=== PATIENT | female | born 1945 | race Caucasian/White ===

== ENCOUNTER → 2016-11-07 | Outpatient (REF) | payer MEDICARE, OTHER ==
[~2016-11-07] MED LIST: /ESOM40CA PO; /PRAV20TA PO; AMLO5TAB2 PO; ASPI325T PO; ASPI81TA85 PO; ATEN50TA2 PO; BUPR150T PO; BUPR1TAB17 PO; CLOP75TA2 PO; COUM2.5T11 PO; FLUO20CA9 PO; GABA300C2 PO; GABA300C3 PO; HUMA100I SC; HUMA100I3 SC; LEVE1INJ5 SC; LEVEINJ SC; LIPI80TA PO; LISI5TAB PO; METF1000 PO; NEXI40CA PO; PARO10TA10 PO; PERC5TAB6 PO; TYLE325T5 PO; VITA-122 PO
[2016-11-07 13:41] LABS: PERCENT SATURATION 29.9 % (13.2-37.4)
== END ==
LOC: M LAB REF 13:06
DX: E83.119 Hemochromatosis, unspecified (principal)

== ENCOUNTER → 2017-02-26 | Outpatient (REF) | payer MEDICARE, OTHER ==
[~2017-02-26] MED LIST changes: +GABA-282 PO; -GABA300C3 PO
== END ==
LOC: M LAB REF 09:38
PROVIDERS: ATTEND Physician Assistant Medical
DX: N30.01 Acute cystitis with hematuria (principal)

== ENCOUNTER → 2017-03-11 | Outpatient (REF) | payer MEDICARE, OTHER ==
[~2017-03-11] MED LIST changes: -BUPR1TAB17 PO; +BUPR1TAB53 PO; -COUM2.5T11 PO; +COUM2.5T17 PO; +FLUO20CA19 PO; -FLUO20CA9 PO; +METF10004 PO; +PERC5TAB12 PO; -PERC5TAB6 PO
== END ==
LOC: M LAB REF 18:14
PROVIDERS: ATTEND Physician Assistant Medical
DX: N30.01 Acute cystitis with hematuria (principal)

== ENCOUNTER → 2017-03-21 | Outpatient (REF) | payer MEDICARE, OTHER | LOC: M LAB REF 17:01 | PROVIDERS: ATTEND Internal Medicine | DX: E83.119 Hemochromatosis, unspecified (principal) ==

== ENCOUNTER → 2017-07-28 | Outpatient (CLI) | payer MEDICARE, OTHER ==
--- NOTE | 2017-07-28 11:57 | REPMRS ---
Patient History The patient states she has not had a clinical breast exam in over a year. Patient is postmenopausal. No known family history of cancer. Took hormonal contraceptives for 3 years. Digital Mammo Screening Bilat: July 28, 2017 - Exam #: [id number] Bilateral CC and MLO view(s) were taken. Technologist: Malissa Interiano, Technologist Prior study comparison: July 12, 2016, bilateral digital mammo screening bilat performed at [facility]. December 24, 2014, bilateral digital mammo screening bilat performed at [facility]. FINDINGS: There are scattered fibroglandular densities. There has been no change in the appearance of the mammogram from the prior studies. There is a mild amount of residual fibroglandular tissue which is fairly symmetric. There is no interval development of dominant mass, architectural distortion, or clustered microcalcification suggestive of malignancy. ASSESSMENT: BI-RADS/ACR category 1 mammogram. Negative. Recommendation Routine screening mammogram in 1 year (for women over age 40). This mammogram was interpreted with the aid of an FDA-approved computer-aided dectection system. Electronically Signed By: Xander Zuniga MD 07/28/17 [id number]
== END ==
LOC: M RAD 11:00
PROVIDERS: ATTEND Nurse Practitioner Adult Health
DX: Z12.31 Encounter for screening mammogram for malignant neoplasm of breast (principal); Z78.0 Asymptomatic menopausal state; Z92.0 Personal history of contraception

== ENCOUNTER → 2017-07-30 | Outpatient (REF) | payer MEDICARE, OTHER | LOC: M LAB REF 19:17 | PROVIDERS: ATTEND Physician Assistant Medical | DX: N30.01 Acute cystitis with hematuria (principal) ==

== ENCOUNTER → 2017-11-27 | Outpatient (REF) | payer MEDICARE, OTHER | LOC: M LAB REF 12:36 | DX: N39.0 Urinary tract infection, site not specified (principal) | CPT/HCPCS: 87088; 87186 ==

== ENCOUNTER → 2017-12-14 | Outpatient (REF) | payer MEDICARE, OTHER | LOC: M LAB REF 12:39 | DX: N39.0 Urinary tract infection, site not specified (principal) | CPT/HCPCS: 87186 ==

== ENCOUNTER → 2018-03-28 | Outpatient (REF) | payer MEDICARE, OTHER ==
[2018-03-29 14:33] LABS: FERRITIN 23 NG/ML (8-252); IRON (FE) 66 UG/DL (50-170); PERCENT SATURATION 21.2 % (13.2-45.0); TOTAL IRON BINDING CAPACITY 311 UG/DL (250-450)
== END ==
LOC: M LAB REF 13:37
DX: E83.119 Hemochromatosis, unspecified (principal); N18.3 Chronic kidney disease, stage 3 (moderate)
CPT/HCPCS: 83550

== ENCOUNTER → 2018-05-08 | Outpatient (REF) | payer MEDICARE, OTHER | LOC: M LAB REF 12:18 | DX: N39.0 Urinary tract infection, site not specified (principal) | CPT/HCPCS: 87186 ==

== ENCOUNTER → 2018-12-25 | Outpatient (CLI) | payer MEDICARE, OTHER ==
[~2018-12-25] MED LIST changes: -/ESOM40CA PO; -/PRAV20TA PO; +AMLO5TAB6 PO; -GABA-282 PO; +GABA-843 PO; +NEXI1CAP3 PO; +PRAV1TAB39 PO
--- NOTE | 2018-12-25 12:59 | REPMRS ---
Patient History The patient states she has not had a clinical breast exam in over a year. No known family history of cancer. Took hormonal contraceptives for 3 years. Digital Mammo Screening Bilat: December 25, 2018 - Exam #: [id number] Bilateral CC and MLO view(s) were taken. Technologist: Lisa Bucio, Technologist Prior study comparison: July 28, 2017, bilateral digital mammo screening bilat performed at [facility]. July 12, 2016, bilateral digital mammo screening bilat performed at [facility]. December 24, 2014, bilateral digital mammo screening bilat performed at [facility]. FINDINGS: There are scattered fibroglandular densities. There has been no change in the appearance of the mammogram from the prior studies. There is a mild amount of scattered fibroglandular density which is fairly symmetric. There is no interval development of dominant mass, architectural distortion, or clustered microcalcification suggestive of malignancy. 3-D tomosynthesis shows no additional findings. Assessment: BI-RADS/ACR category 1 mammogram. Negative Mammogram. Recommendation Routine screening mammogram of both breasts in 1 year (for women over age 40). This patient's Lifetime Breast Cancer RIsk is estimated at 4.2 %. This mammogram was interpreted with the aid of an FDA-approved computer-aided dectection system. Electronically Signed By: Presley Brito MD 12/25/18 [id number]
== END ==
LOC: M RAD 10:51
PROVIDERS: ATTEND Nurse Practitioner Adult Health
DX: Z12.31 Encounter for screening mammogram for malignant neoplasm of breast (principal)

== ENCOUNTER → 2019-09-21 | Outpatient (CLI) | payer MEDICARE, OTHER ==
--- NOTE | 2019-09-22 09:04 | REP ---
MRI RIGHT SHOULDER: TECHNIQUE: Axial T2 fat sat, gradient echo, sagittal oblique T2 fat sat, coronal oblique T1, T2 fat sat. There is a full thickness partial tear of the anterior aspect of the supraspinatus tendon, peripherally. The gap in the tendon measures approximately 9 mm in length. There is diffuse increased signal on T2-weighted images involving the subscapularis tendon likely representing a partial tear. There is also some degree of mild increased signal on T2-weighted images involving the infraspinatus tendon in the region of the musculotendinous junction compatible with tendinopathy/tendinitis. There are moderate hypertrophic degenerative changes of the acromioclavicular joint with a tiny amount of fluid in the joint. The acromion is type II. The biceps tendon is within the bicipital groove with mild diffuse increased signal and surrounding fluid suggesting tenosynovitis. There is no Hill-Sachs deformity. The deltoid muscle demonstrates no abnormal signal. There is fraying of the biceps labral complex. No definite labral tear is seen. There is mild chondromalacia at the glenohumeral joint. Tiny subcortical cystic changes are seen in the superolateral humeral head. There is a small joint effusion with a tiny amount of fluid in the subacromial subdeltoid bursae. IMPRESSION: Full thickness partial tear anterior peripheral supraspinatus tendon with a gap in the tendon 9 mm in length. Partial tear subscapularis tendon. Mild tendinopathy/tendinitis infraspinatus tendon. Moderate hypertrophic degenerative changes acromioclavicular joint with type II acromion. Biceps tenosynovitis. Fraying of the biceps labral complex without a definite labral tear. Tiny subcortical cystic changes superolateral humeral head. Very small amount of fluid in the subacromial subdeltoid bursae. Electronically Signed by Xander Zuniga MD 09/22/2019 09:41 A
== END ==
LOC: M RAD 12:51
PROVIDERS: ATTEND Orthopaedic Surgery Hand Surgery
DX: S46.091A Other injury of muscle(s) and tendon(s) of the rotator cuff of right shoulder, initial encounter (principal); Y92.9 Unspecified place or not applicable; Y93.9 Activity, unspecified; Y99.9 Unspecified external cause status

== ENCOUNTER → 2019-10-25 | Outpatient (REF) | payer MEDICARE, OTHER ==
[~2019-10-25] MED LIST changes: -FLUO20CA19 PO; +FLUO20CA22 PO; +JARD1TAB PO; +LISI10TA4 PO; +MAPA500T2 PO; +TOUJ1.2I SC; +VITA100054 PO
[2019-10-25 18:13] LABS: PERCENT SATURATION 23.9 % (13.2-45.0)
== END ==
LOC: M LAB REF 16:35
PROVIDERS: ATTEND Nurse Practitioner Adult Health
DX: N18.3 Chronic kidney disease, stage 3 (moderate) (principal); Z79.4 Long term (current) use of insulin; Z79.82 Long term (current) use of aspirin; Z79.899 Other long term (current) drug therapy

== ENCOUNTER 2019-10-29 09:47 | Day surgery (SDC) | payer MEDICARE, OTHER ==
[~2019-10-29] VITALS: Ht 172.7 cm; Wt 81.6 kg
[2019-10-29] MEDS ORDERED: ROPIvacaine 0.5% 30 ML INJECTION (J2795 PER 1MG) ONE (09:48)
[2019-10-29] MEDS ORDERED: dexameTHASONE 10 MG/1 ML VIAL PRES.FREE (J1100) ONE (09:48)
[2019-10-29] MEDS ORDERED: LIDOCAINE 1% MDV 20ML VIAL ONE (09:48)
[2019-10-29] MEDS ORDERED: propofoL 200 MG/20 ML VIAL As Ordered ONE (10:49)
[2019-10-29] MEDS ORDERED: LIDOCAINE 2% INJ 100 MG/5 ML SDV (FOR ANES.) As Ordered ONE (10:49)
[2019-10-29] MEDS ORDERED: ROCURONIUM BROMIDE 50 MG/5 ML VIAL As Ordered ONE (10:49)
[2019-10-29] MEDS ORDERED: fentaNYL 100 MCG/2 ML INJECTION (J3010) As Ordered ONE ×2 (10:50→12:12)
[2019-10-29] MEDS ORDERED: dexameTHASONE 4 MG/ML 1ML VIAL (J1100) As Ordered ONE (10:50)
[2019-10-29] MEDS ORDERED: MIDAZOLAM INJ 2 MG/2 ML VIAL (J2250) As Ordered ONE ×2 (10:50→12:12)
[2019-10-29] MEDS ORDERED: ONDANSETRON 4MG/2ML VIAL (J2405) As Ordered ONE (10:50)
[2019-10-29] MEDS ORDERED: ceFAZolin SOD 2 GM in IV 1 EA IV ONE (11:00)
[2019-10-29] MEDS ORDERED: atenoloL 25 MG TAB PO ONE (11:00)
[2019-10-29] MEDS ORDERED: LR 1,000 ML IV ONE (11:00)
[2019-10-29 11:22] VITALS: BP 148/74
[2019-10-29] MEDS ORDERED: MIDAZOLAM INJ 2 MG/2 ML VIAL (J2250) IV ONE (12:45)
[2019-10-29] MEDS ORDERED: fentaNYL 100 MCG/2 ML INJECTION (J3010) IV ONE (12:45)
[2019-10-29] MEDS ORDERED: PHENYLEPHRINE INJ 10MG/ML VIAL (J2370) As Ordered ONE (13:02)
[2019-10-29] MEDS ORDERED: EPINEPHrine 1MG/ML INJ 30ML MD-VIAL As Ordered ONE (13:05)
[2019-10-29] MEDS ORDERED: ACETAMINOPHEN 1000MG 100ML IV BTL (OFIRMEV) (J0131 PER 10MG) As Ordered ONE (13:53)
[2019-10-29] MEDS ORDERED: SUGAMMADEX SODIUM 500 MG/5 ML VIAL (BRIDION) As Ordered ONE (13:53)
[2019-10-29] MEDS ORDERED: oxyCODONE 5MG TAB PO PRN ×3 (16:00)
[2019-10-29] MEDS ORDERED: LR 1,000 ML IV SCH (16:00)
[2019-10-29] MEDS ORDERED: fentaNYL 100 MCG/2 ML INJECTION (J3010) IV PRN (16:00)
[2019-10-29] MEDS ORDERED: ONDANSETRON 4MG/2ML VIAL (J2405) IV PRN (16:00)
[2019-10-29] MEDS ORDERED: HYDROMORPHONE HCL 0.5 MG/ 0.5 ML SYRINGE (J1170 PER 1) IV PRN (16:00)
[2019-10-29] MEDS ORDERED: METOCLOPRAMIDE INJ 10MG/2ML VIAL (J2765) As Ordered ONE (16:26)
[2019-10-29] MEDS ORDERED: METOCLOPRAMIDE INJ 10MG/2ML VIAL (J2765) IV SCH (16:45)
[2019-10-29 18:00] VITALS: BP 142/77
--- NOTE | 2019-10-30 14:57 | RO ---
DATE OF PROCEDURE: 10/29/2019 PREOPERATIVE DIAGNOSES: Right rotator cuff tear, biceps tendinitis with impingement. POSTOPERATIVE DIAGNOSES: Right rotator cuff tear, biceps tendinitis with impingement. PROCEDURE: Right rotator cuff repair, biceps tenodesis, distal clavicle excision, subacromial decompression and acromioplasty. SURGEON: Gaston Olsen MD FRENCH COMBER: Edward Foster PA-C who was essential for suture management. ANESTHESIA: General. INDICATION: 74-year-old female that failed nonoperative treatment. We discussed the risks and benefits of surgical repair including, but not limited to. Infection, damage to surrounding structures, incomplete relief and the patient wished to proceed. ESTIMATED BLOOD LOSS: Minimal. COMPLICATIONS: None. PREOPERATIVE ANTIBIOTICS: 2 grams of Ancef. OPERATIVE DESCRIPTION: Patient was brought back to the OR in the supine position, underwent general anesthesia and placed into the beach chair, at which point the right arm was prepped and draped in the usual fashion. We then had a time out confirming site, side and surgery. Once all in agreement, we made a stab incision for our posterior portal. Once we entered the glenohumeral joint, we identified the rotator interval and established a right anterior portal and inserted the cannula. At this time, we evaluated the articular joint. There was stage 3/4 changes in the humeral head and glenoid with focal defects in the center position with some significant biceps tendonitis and a lipstick sign and also a type 2 superior labral anterior posterior (SLAP) tear. We then tagged the bicep with FiberLink and detached it from its labral attachment and at top of the groove with a 4-5 SwiveLock. We then debrided the labrum at which point we identified the rotator cuff tear and debrided the cuff insertion position using a burner shaver and curettes. We then went into the subacromial space. I did a subacromial decompression and acromioplasty utilizing a shaver, bur and coagulation along with a distal clavicle excision from the anterior portal removing approximately 1.1 cm of bone to actively decompress the rotator cuff at which point we created enough room to debride the footprints of the rotator cuff from its subacromial space along with the lateral cortex. We used SpeedBridge and placed two medial row anchors with FiberTape passing both anterior and posteriorly to pull the cuff forward. At this point, as the bone quality was quite poor, we were able to insert the punch by hand. We then snipped the two limbs of the FiberTape and crossed them over as per usual and placed our two lateral anchors. We were able to compress the cuff nicely to bone, however the suture itself was actually crushing portions of the bone from our lateral anchor suggesting how poor that bone was, but the anchors were tested and appeared to be well fixed. At this point we irrigated the wound thoroughly, closed the incisions with #3-0 nylon and placed a dressing. The patient was awakened, placed into a sling and went to the postanesthesia care unit (PACU) in stable condition. POSTOP PLAN: Patient will work on pain control. We will see her in the office in 2 weeks for her incision check and likely we will progress her extremely slowly, waiting for any true active range of motion for approximately 6 weeks due to poor bone quality along with the large cuff tear. ANURAG
== END 2019-10-29 18:01 | disposition home or self-care (01) ==
LOC: M SDC 09:47
PROVIDERS: ATTEND Orthopaedic Surgery Hand Surgery
DX: M75.41 Impingement syndrome of right shoulder (principal); M75.21 Bicipital tendinitis, right shoulder; E11.9 Type 2 diabetes mellitus without complications; I10 Essential (primary) hypertension; E78.5 Hyperlipidemia, unspecified; G47.30 Sleep apnea, unspecified; Z79.84 Long term (current) use of oral hypoglycemic drugs; Z79.4 Long term (current) use of insulin; Z79.899 Other long term (current) drug therapy; Z79.82 Long term (current) use of aspirin; Z88.5 Allergy status to narcotic agent; F41.9 Anxiety disorder, unspecified; F32.9 Major depressive disorder, single episode, unspecified
CPT/HCPCS: 29824; 29826; 29827; 29828; C1713; J0131; J0690; J1100; J2250; J2370; J2405; J2765; J2795; J3010

== ENCOUNTER → 2020-10-25 | Outpatient (REF) | payer MEDICARE, OTHER ==
[~2020-10-25] MED LIST changes: +AMLO1TAB24 PO; -AMLO5TAB6 PO; -ASPI81TA85 PO; +ASPI81TA86 PO; +GABA-282 PO; -GABA-843 PO; +LISI10TA22 PO; -LISI10TA4 PO
[2020-10-25 15:19] LABS: APPEARANCE, URINE MANUAL HAZY (CLEAR); COLOR, URINE MANUAL LT YELLOW (YELLOW)
[2020-10-25 15:20] LABS: BILIRUBIN, URINE MANUAL NEGATIVE (NEGATIVE); BLOOD URINE MANUAL POSITIVE (NEGATIVE); GLUCOSE, URINE (UA) MANUAL 4+(1000 MG/DL) mg/dL (NEGATIVE); KETONE, URINE MANUAL NEGATIVE (NEGATIVE); LEUKOCYTE ESTERASE, URINE MAN POSITIVE (NEGATIVE); NITRITE, URINE MANUAL NEGATIVE (NEGATIVE); PROTEIN, URINE MANUAL 3+ mg/dL (NEGATIVE); UROBILINOGEN, URINE MANUAL NORMAL (NORMAL)
== END ==
LOC: M LAB REF 14:50
PROVIDERS: ATTEND Physician Assistant Medical
DX: M54.5 Low back pain (principal)

== ENCOUNTER → 2021-01-25 | Outpatient (REF) | payer MEDICARE, OTHER ==
[2021-01-25 12:36] LABS: APPEARANCE, URINE CLOUDY (CLEAR); BACTERIA, URINE AUTO 1+ (NEGATIVE); BILIRUBIN, URINE AUTO NEGATIVE (NEGATIVE); BLOOD, URINE BLOOD 3+ (NEGATIVE); COLOR, URINE YELLOW (YELLOW); GLUCOSE, URINE (UA) AUTO 3+ mg/dL (NEGATIVE); KETONE, URINE AUTO NEGATIVE (NEGATIVE); LEUKOCYTE ESTERASE, URINE AUTO 3+ (NEGATIVE); NITRITE, URINE AUTO NEGATIVE (NEGATIVE); PROTEIN, URINE AUTO 1+ mg/dL (NEGATIVE); RBC, URINE AUTO 6 /HPF (0-3); SPECIFIC GRAVITY URINE AUTO 1.027 (1.002-1.035); SQUAMOUS EPITHELIAL CELL UR AU 1 /HPF (0-6); UROBILINOGEN, URINE AUTO 0.2 mg/dL (0.0-2.0); WBC, URINE AUTO TNTC /HPF (0-3)
== END ==
LOC: M LAB REF 12:06
PROVIDERS: ATTEND Physician Assistant Medical
DX: N39.0 Urinary tract infection, site not specified (principal)

== ENCOUNTER → 2021-02-23 | Outpatient (REF) | payer MEDICARE, OTHER ==
[2021-02-23 17:33] LABS: APPEARANCE, URINE TURBID (CLEAR); BACTERIA, URINE AUTO 2+ (NEGATIVE); BILIRUBIN, URINE AUTO NEGATIVE (NEGATIVE); BLOOD, URINE BLOOD 2+ (NEGATIVE); COLOR, URINE YELLOW (YELLOW); GLUCOSE, URINE (UA) AUTO 3+ mg/dL (NEGATIVE); KETONE, URINE AUTO NEGATIVE (NEGATIVE); LEUKOCYTE ESTERASE, URINE AUTO 3+ (NEGATIVE); NITRITE, URINE AUTO POSITIVE (NEGATIVE); PROTEIN, URINE AUTO 2+ mg/dL (NEGATIVE); RBC, URINE AUTO 32 /HPF (0-3); SPECIFIC GRAVITY URINE AUTO 1.025 (1.002-1.035); SQUAMOUS EPITHELIAL CELL UR AU 0 /HPF (0-6); UROBILINOGEN, URINE AUTO 0.2 mg/dL (0.0-2.0); WBC, URINE AUTO TNTC /HPF (0-3)
== END ==
LOC: M LAB REF 17:00
PROVIDERS: ATTEND Physician Assistant Medical
DX: N39.0 Urinary tract infection, site not specified (principal)

== ENCOUNTER → 2021-03-04 | Outpatient (CLI) | payer MEDICARE, OTHER ==
--- NOTE | 2021-03-04 17:09 | REP ---
INDICATION: RECURRENT C-DIFF. COMPARISON: None. TECHNIQUE: Sagittal fat suppressed T2 and proton density. Coronal proton density, fat suppressed proton density and STIR. Axial fat suppressed proton density and T1. FINDINGS: The tendons of the tibialis anterior, extensor hallucis, and extensor digitorum muscles are intact and of normal appearing low signal throughout. The posterior tibial tendon is enlarged with T2 hyper signal within it. Flexor hallucis and flexor digitorum tendons are intact and of normal appearing low signal throughout. Increased fluid surrounds the flexor hallucis tendon. The Achilles tendon is intact and of normal appearing low signal throughout. The anterior and posteroinferior tibiofibular ligaments are intact. The anterior and posterior talofibular ligaments are intact the calcaneofibular ligament is intact. The ligaments within the sinus tarsi are intact and the sinus tarsi fat signal is preserved. Degenerative changes are seen throughout the ankle and imaged portion of the foot. There is no significant cystic degenerative change in the os calcis deep to the angle of Gissane. The lateral talar process is sharp and without cystic degeneration. There is a significant appearing heel valgus deformity with some degenerative changes seen involving the lateral ankle. There is irregularity of the chondral surface of the tibial plafond medially with thinning and irregularity of all articular cartilages. The subtalar joints are asymmetrically narrowed with marginal osteophyte formation. Plantar and retrocalcaneal heel spurs are present. IMPRESSION: 1. High-grade interstitial tear of the posterior tibial tendon. 2. Possible flexor hallucis tenosynovitis. 3. There is a heel valgus deformity with possible early lateral hindfoot impingement. 4. Chondromalacia throughout as described above. 5. Degenerative changes throughout as described above. 6. Heel spurs 7. Other findings as described above. <Electronically signed by Zackary Schmidt > 03/04/21 [id number]
== END ==
LOC: M RAD 16:00
PROVIDERS: ATTEND Podiatrist
DX: S96.012A Strain of muscle and tendon of long flexor muscle of toe at ankle and foot level, left foot, initial encounter (principal); M94.272 Chondromalacia, left ankle and joints of left foot; M77.32 Calcaneal spur, left foot; M19.072 Primary osteoarthritis, left ankle and foot; Q66.6 Other congenital valgus deformities of feet; X58.XXXA Exposure to other specified factors, initial encounter; Y92.9 Unspecified place or not applicable; Y99.9 Unspecified external cause status

== ENCOUNTER → 2021-04-06 | Outpatient (CLI) | payer MEDICARE, OTHER ==
[2021-04-06 09:32] LABS: BASO % 0.3 % (0.0-1.0); EOS # 0.2 10^3/uL (0.0-0.5); EOS % 3.8 % (0.0-3.0); HEMATOCRIT 49.9 % (36.0-47.0); HEMOGLOBIN 16.2 g/dl (12.0-15.5); LYMPH # 1.9 10^3/uL (1.5-5.0); MEAN CORPUSCULAR HEMOGLOBIN 28.4 pg (27.0-33.0); MEAN CORPUSCULAR HGB CONC 32.5 g/dl (32.0-36.5); MEAN CORPUSCULAR VOLUME 87.4 fl (80.0-96.0); MONO # 0.6 10^3/uL (0.0-0.8); MONO % 9.6 % (2.0-8.0); NEUTROPHILS # 3.4 10^3/uL (1.5-8.5); NEUTROPHILS % 54.8 % (36.0-66.0); PLATELET COUNT, AUTOMATED 202 10^3/uL (150-450); RED BLOOD COUNT 5.71 10^6/uL (4.00-5.40); WHITE BLOOD COUNT 6.1 10^3/uL (4.0-10.0)
[2021-04-06 09:53] LABS: ALBUMIN 4.2 GM/DL (3.2-5.2); BILIRUBIN,TOTAL 1.9 MG/DL (0.2-1.0); CALCIUM LEVEL 9.9 MG/DL (8.8-10.2); CREATININE FOR GFR 1.17 MG/DL (0.55-1.30); GLOMERULAR FILTRATION RATE 48.1 (>39); POTASSIUM SERUM 4.9 MEQ/L (3.5-5.1); TOTAL PROTEIN 7.7 GM/DL (6.4-8.2)
--- NOTE | 2021-04-06 10:53 | REP ---
INDICATION: PREOP- LABS AND EKG FIRST. COMPARISON: 09/01/2015 TECHNIQUE: PA and lateral FINDINGS: The cardiomediastinal silhouette is unchanged. There is cardiomegaly status quo. There is basilar fibrotic change status quo. No acute patchy parenchymal opacities or pleural effusions have developed. There is no change in the osseous structures. IMPRESSION: Cardiomegaly without evidence of acute cardiopulmonary disease. <Electronically signed by Zackary Schmidt > 04/06/21 [id number]
--- NOTE | 2021-04-06 22:04 | ECGEPIP ---
[facility] Test Date: 2021-04-06 Pat Name: NEO MONTERROSO Department: Room: - Gender: Female Water Treatment Specialist: JEOVANY : 1945 Requested By: Jose Luis Haines Order Number: [id number] Reading MD: Xavi Arroyo Measurements Intervals [place] Rate: 67 P: 41 UT: 186 QRS: -72 QRSD: 118 T: 74 QT: 410 QTc: 433 Interpretive Statements Normal sinus rhythm Left anterior fascicular block Left ventricular hypertrophy with QRS widening and repolarization abnormality ( R in aVL , Emigdio product , Romhilt-Nava ) Cannot rule out Septal infarct , age undetermined Last tracing on 09/01/15, 10:57 No remarkable changes Electronically Signed on 04-06-2021 22:04:26 EDT by Xavi Arroyo
== END ==
LOC: M LAB 08:54
PROVIDERS: ATTEND Podiatrist
DX: Z01.818 Encounter for other preprocedural examination (principal); M66.372 Spontaneous rupture of flexor tendons, left ankle and foot; M79.672 Pain in left foot; I51.7 Cardiomegaly

== ENCOUNTER → 2021-04-25 | Outpatient (REF) | payer MEDICARE, OTHER ==
[~2021-04-25] MED LIST changes: +ACET-683 PO; +ASPI81TA26 PO
[2021-04-25 18:03] LABS: APPEARANCE, URINE TURBID (CLEAR); BACTERIA, URINE AUTO 1+ (NEGATIVE); BILIRUBIN, URINE AUTO NEGATIVE (NEGATIVE); BLOOD, URINE BLOOD 2+ (NEGATIVE); COLOR, URINE YELLOW (YELLOW); GLUCOSE, URINE (UA) AUTO 3+ mg/dL (NEGATIVE); KETONE, URINE AUTO NEGATIVE (NEGATIVE); LEUKOCYTE ESTERASE, URINE AUTO 3+ (NEGATIVE); NITRITE, URINE AUTO NEGATIVE (NEGATIVE); PROTEIN, URINE AUTO 3+ mg/dL (NEGATIVE); RBC, URINE AUTO 142 /HPF (0-3); SPECIFIC GRAVITY URINE AUTO 1.023 (1.002-1.035); SQUAMOUS EPITHELIAL CELL UR AU 6 /HPF (0-6); UROBILINOGEN, URINE AUTO 0.2 mg/dL (0.0-2.0); WBC, URINE AUTO TNTC /HPF (0-3)
== END ==
LOC: M LAB REF 17:46
PROVIDERS: ATTEND Physician Assistant
DX: R30.0 Dysuria (principal)

== ENCOUNTER → 2021-04-26 | Outpatient (CLI) | payer MEDICARE, OTHER | LOC: M LABSMTC 10:49 | PROVIDERS: ATTEND Anesthesiology | DX: Z01.818 Encounter for other preprocedural examination (principal) ==

== ENCOUNTER 2021-04-30 07:07 | Day surgery (SDC) | payer MEDICARE, OTHER ==
[~2021-04-30] VITALS: Ht 170.2 cm; Wt 79.3 kg
[~2021-04-30 07:07] MED LIST changes: +ceFAZolin SOD 2 GM in IV 1 EA IV ONE
[2021-04-30] MEDS ORDERED: ONDANSETRON 4MG/2ML VIAL As Ordered ONE (07:57)
[2021-04-30] MEDS ORDERED: MIDAZOLAM INJ 2MG/2ML VIAL (J2250 PER 1MG) As Ordered ONE (07:57)
[2021-04-30] MEDS ORDERED: propofoL 200 MG/20 ML VIAL As Ordered ONE (07:57)
[2021-04-30] MEDS ORDERED: LIDOCAINE 2% 100MG/5ML SDV (FOR ANES.) As Ordered ONE (07:57)
[2021-04-30] MEDS ORDERED: dexameTHASONE 4 MG/ML 1ML VIAL (J1100 PER 1MG) As Ordered ONE ×2 (07:57→08:24)
[2021-04-30] MEDS ORDERED: fentaNYL 100 MCG/2 ML INJECTION (J3010) As Ordered ONE ×2 (07:57→11:31)
[2021-04-30] MEDS ORDERED: LR 1,000 ML IV ONE (08:20)
[2021-04-30] MEDS ORDERED: LIDOCAINE 2% MDV 20ML VIAL As Ordered ONE (08:24)
[2021-04-30] MEDS ORDERED: NEOSPORIN GU IRRIG 20 ML VIAL As Ordered ONE (08:25)
[2021-04-30] MEDS ORDERED: BUPIVACAINE HCL 0.5% 30 ML VIAL As Ordered ONE (08:25)
[2021-04-30] MEDS ORDERED: ePHEDrine SULFATE 25 MG/5 ML(5MG/ML) SYRINGE As Ordered ONE ×2 (09:11→09:28)
[2021-04-30] MEDS ORDERED: ACETAMINOPHEN 1000MG 100ML IV BTL (OFIRMEV) (J0131 PER 10MG) As Ordered ONE (09:11)
[2021-04-30] MEDS ORDERED: METOCLOPRAMIDE INJ 10MG/2ML VIAL (J2765 PER 1) As Ordered ONE (09:24)
[2021-04-30] MEDS ORDERED: PHENYLephrine 500MCG 5ML (100MCG/ML) SYRINGE As Ordered ONE (11:48)
[2021-04-30] MEDS ORDERED: KETOROLAC 60MG 2ML VIAL As Ordered ONE (11:48)
[2021-04-30] MEDS ORDERED: LR 1,000 ML IV SCH (12:35)
[2021-04-30] MEDS ORDERED: HumaLOG INSULIN (NovoLOG) PER UNIT SC ONE (12:35)
[2021-04-30] MEDS ORDERED: fentaNYL 100 MCG/2 ML INJECTION (J3010) IV PRN (12:35)
[2021-04-30] MEDS ORDERED: METOCLOPRAMIDE INJ 10MG/2ML VIAL (J2765 PER 1) IV PRN (12:35)
[2021-04-30] MEDS ORDERED: NORCO, ANEXSIA 5/325MG TABLET (HYDROcodone/ACETAMINOPHEN) PO PRN (12:35)
[2021-04-30] MEDS ORDERED: ONDANSETRON 4MG/2ML VIAL IV PRN (12:35)
--- NOTE | 2021-04-30 13:01 | REP ---
INDICATION: POST OP IN PACU/ 3 VIEW. COMPARISON: None. TECHNIQUE: Three postop views FINDINGS: Overlying bandage/casting material views the bony detail. There is been previous calcaneal ORIF. Chronic changes seen throughout the foot particularly the midfoot region obscured by artifact. Cystic degenerative changes suspected in the navicular. Limited exam showing no evidence of an acute fracture. A curvilinear radiodensity is seen adjacent to the os calcis leading up to a tube external to the foot. IMPRESSION: As above <Electronically signed by Zackary Schmidt > 04/30/21 [id number]
--- NOTE | 2021-04-30 13:31 | RO ---
OPERATIVE NOTE DATE OF OPERATION: 04/30/2021 PREOPERATIVE DIAGNOSIS: Posterior tibial tendon dysfunction, left foot. POSTOPERATIVE DIAGNOSIS: Posterior tibial tendon dysfunction, left foot. PROCEDURE: 1. Debridement of posterior tibial tendon, left foot. 2. Flexor digitorum longus tendon transfer to the navicula. 3. Medial calcaneal slide osteotomy, left foot. SURGEON: CECI MEDINA DPM INVESTMENT EXECUTIVE: None ANESTHESIA: General anesthesia. HEMOSTASIS: Thigh pneumatic tourniquet, first inflation 75 minutes followed by approximately 22 minutes of de-inflation, followed by inflation for 59 minutes. HARDWARE UTILIZED: Arthrex 5.5 x 15 Bio-Interference Screw, absorbable, and a 7.5 mm medial calcaneal displacement plate with a 4.0 x 26 mm compression screw, a 3.5 x 26 mm locking screw, 3.5 x 28 mm locking screw and a 3.5 x 28 mm locking screw. DESCRIPTION OF PROCEDURE: On 04/30/2021, this 75-year-old white female was taken from her hospital room to the operating room and placed on the operating table in supine position. Following the induction of IV sedation and local and regional anesthesia, the left lower extremity was prepped and draped in the usual aseptic manner. A thigh pneumatic tourniquet was applied. Sterile draping was completed and the following procedure was performed: Posterior tibial tendon debridement with flexor digitorum longus tendon transfer to the navicula with a 5.5 x 15 mm Bio-Interference Screw: Attention was directed to the patient's medial surface of the foot where an incision was made 2 cm superior to the medial malleolus and extended 2 cm inferior to the navicula coursing across the posterior tibial tendon. Dissection was carried down through the subcutaneous tissues, all coursing venous tributaries were clamped, cut, ligated or electrocoagulated as necessary. Dissection was carried down to the level of the posterior tibial tendon which was noted to be remarkably thickened and degenerated approximately twice its normal thickness. This was then debrided to where it was normal in structure just superior to the medial malleolus, transected at that level, tied for further retrieval and debrided down to the navicula. Dissection was then carried through the flexor sheath for the flexor digitorum longus tendon and it was traced in a superior direct to superior to the medial malleolus and then tracked in an inferior direction down to the region of the Master Knot of Jacques and transected. All bleeders as encountered were electrocoagulated. A speed whip #2 FiberWire was then placed across the distal end of the tendon. The tendon with the foot held in an inverted position, trimmed to the appropriate length so that 15 mm of tendon was left at the anchor drill hole and a socket was formed utilizing CM Imagery and a 5.5 x 18 mm drill hole was placed into the navicula to create the socket. The foot was then inverted and utilizing the standard technique, the tendon was placed into the socket and a 5.5 x 15 mm interference screw was screwed over the tendon giving firm compression into the bone. The residual stub of the posterior tibial tendon was then sutured over this with 4-0 FiberWire. The wound was flushed with copious amounts of Bacitracin, Neomycin and Polymyxin-B solution. The flexor retinaculum was repaired with 4-0 FiberWire and the tendon sheath was then repaired with 4-0 Monocryl. The subcutaneous tissues were maintained utilizing 4-0 Monocryl, the skin was coapted and maintained utilizing 3-0 nylon. The tourniquet was deflated and closure was obtained with the tourniquet down. All additional bleeders were electrocoagulated. Patient was then repositioned so that the lateral surface of the foot was dorsal and attention was then directed to the calcaneal region where a 4 to 5 cm incision was placed over the lateral wall of the calcaneus. Dissection was carried down to the level of the calcaneus and utilizing a saravia elevator, the lateral wall was exposed. Utilizing CM Imagery, appropriate placement was then used to fashion the osteotomy. The lateral osteotomy was then created with a sagittal saw and the bone was transposed 7.5 mm and a displacement plate was applied. Two 28 locking screws were placed on the more distal fragment, the proximal fragment had a 3.5 mm locking screw placed, however had some difficulty on the inferior proximal screw initially, a locking screw was placed which did not provide any compression, was replaced with a 3.5 cancellus screw but no compression was obtained, therefore a 4.0 cancellus screw was placed in its location. This did provide firm fixation. The osteotomy was tested and noted to be stable in all three cardinal planes, intraoperative CM Image reveals good position of the plate and osteotomy. The wound was flushed with copious amounts of Bacitracin, Neomycin and Polymixin-B solution. A TLS drain was then placed in the wound and sutured to the skin with 3-0 silk. The subcutaneous tissues were coapted and maintained utilizing 4-0 Monocryl in a simple interrupted type fashion. The skin incision was coapted and maintained utilizing 3-0 nylon in a simple interrupted type fashion. A compressive dressing was applied consisting of Adaptic, 4 x 4's, Kerlix and ABDs followed by a Escobar compressive dressing with a posterior splint. A thigh pneumatic tourniquet was deflated and instantaneous capillary filling time was noted to digits 1-5 of the patient's left foot. The patient apparently tolerated the surgical procedure well and was taken from the OR to the recovery room for further monitoring by the anesthesia department. Postoperative instructions given upon discharge.
[2021-04-30 14:38] VITALS: BP 139/65
== END 2021-04-30 14:45 | disposition home or self-care (01) ==
LOC: M SDC 07:07
PROVIDERS: ATTEND Podiatrist
DX: M66.862 Spontaneous rupture of other tendons, left lower leg (principal); K21.9 Gastro-esophageal reflux disease without esophagitis; E78.00 Pure hypercholesterolemia, unspecified; E78.49 Other hyperlipidemia; I10 Essential (primary) hypertension; G47.33 Obstructive sleep apnea (adult) (pediatric); E11.9 Type 2 diabetes mellitus without complications; Z79.84 Long term (current) use of oral hypoglycemic drugs; Z79.82 Long term (current) use of aspirin; Z79.899 Other long term (current) drug therapy; Z79.4 Long term (current) use of insulin; F32.9 Major depressive disorder, single episode, unspecified; F41.9 Anxiety disorder, unspecified; Z88.5 Allergy status to narcotic agent; Z86.73 Personal history of transient ischemic attack (TIA), and cerebral infarction without residual deficits
CPT/HCPCS: 27691; 28300; 73630; 76000; 88304; C1713; J0131; J0690; J1100; J1885; J2250; J2370; J2405; J2765; J3010

== ENCOUNTER → 2021-10-06 | Outpatient (REF) | payer MEDICARE, OTHER ==
[~2021-10-06] MED LIST changes: -ceFAZolin SOD 2 GM in IV 1 EA IV ONE
== END ==
LOC: M LAB REF 11:53
PROVIDERS: ATTEND Nurse Practitioner Adult Health
DX: E83.110 Hereditary hemochromatosis (principal)

== ENCOUNTER → 2022-01-05 | Outpatient (REF) | payer MEDICARE, OTHER ==
[2022-01-05 17:42] LABS: APPEARANCE, URINE HAZY (CLEAR); BACTERIA, URINE AUTO NEGATIVE (NEGATIVE); BILIRUBIN, URINE AUTO NEGATIVE (NEGATIVE); BLOOD, URINE BLOOD NEGATIVE (NEGATIVE); COLOR, URINE YELLOW (YELLOW); GLUCOSE, URINE (UA) AUTO 1+ mg/dL (NEGATIVE); KETONE, URINE AUTO NEGATIVE (NEGATIVE); LEUKOCYTE ESTERASE, URINE AUTO 3+ (NEGATIVE); MUCUS, URINE SMALL (NEGATIVE); NITRITE, URINE AUTO NEGATIVE (NEGATIVE); PROTEIN, URINE AUTO NEGATIVE (NEGATIVE); RBC, URINE AUTO 4 /HPF (0-3); SPECIFIC GRAVITY URINE AUTO 1.019 (1.002-1.035); SQUAMOUS EPITHELIAL CELL UR AU 7 /HPF (0-6); UROBILINOGEN, URINE AUTO 0.2 mg/dL (0.0-2.0); WBC, URINE AUTO 37 /HPF (0-3)
== END ==
LOC: M LAB REF 16:27
PROVIDERS: ATTEND Physician Assistant
DX: N39.0 Urinary tract infection, site not specified (principal)

== ENCOUNTER → 2022-01-07 | Outpatient (REF) | payer MEDICARE, OTHER | LOC: M LAB REF 12:50 | PROVIDERS: ATTEND Nurse Practitioner Adult Health | DX: R30.0 Dysuria (principal); R74.8 Abnormal levels of other serum enzymes ==

== ENCOUNTER → 2022-01-30 | Outpatient (REF) | payer MEDICARE, OTHER ==
[2022-01-30 17:41] LABS: APPEARANCE, URINE TURBID (CLEAR); BACTERIA, URINE AUTO 1+ (NEGATIVE); BILIRUBIN, URINE AUTO NEGATIVE (NEGATIVE); BLOOD, URINE BLOOD 2+ (NEGATIVE); COLOR, URINE AMBER (YELLOW); GLUCOSE, URINE (UA) AUTO 3+ mg/dL (NEGATIVE); KETONE, URINE AUTO NEGATIVE (NEGATIVE); LEUKOCYTE ESTERASE, URINE AUTO 3+ (NEGATIVE); MUCUS, URINE SMALL (NEGATIVE); NITRITE, URINE AUTO NEGATIVE (NEGATIVE); PROTEIN, URINE AUTO 2+ mg/dL (NEGATIVE); RBC, URINE AUTO 7 /HPF (0-3); SPECIFIC GRAVITY URINE AUTO 1.014 (1.002-1.035); SQUAMOUS EPITHELIAL CELL UR AU 0 /HPF (0-6); UROBILINOGEN, URINE AUTO 0.2 mg/dL (0.0-2.0); WBC, URINE AUTO TNTC /HPF (0-3)
== END ==
LOC: M LAB REF 17:07
PROVIDERS: ATTEND Physician Assistant
DX: N39.0 Urinary tract infection, site not specified (principal)

== ENCOUNTER 2022-03-02 14:29 | Inpatient (IN) | payer MEDICARE, OTHER ==
[~2022-03-02] VITALS: Ht 170.2 cm; Wt 74.3 kg
[2022-03-02] MEDS ORDERED: LISI5TAB11 PO (14:47)
[2022-03-02] MEDS ORDERED: HUMA100I5 SC (14:47)
[2022-03-02] MEDS ORDERED: FAMO20TA5 PO (14:47)
[2022-03-02 16:36] LABS: BASO % 0.1 % (0.0-1.0); EOS % 0.2 % (0.0-3.0); HEMATOCRIT 38.6 % (36.0-47.0); HEMOGLOBIN 13.4 g/dl (12.0-15.5); LYMPH # 1.1 10^3/uL (1.5-5.0); MEAN CORPUSCULAR HEMOGLOBIN 29.5 pg (27.0-33.0); MEAN CORPUSCULAR HGB CONC 34.7 g/dl (32.0-36.5); MEAN CORPUSCULAR VOLUME 84.8 fl (80.0-96.0); MONO # 0.7 10^3/uL (0.0-0.8); MONO % 8.4 % (2.0-8.0); NEUTROPHILS # 6.8 10^3/uL (1.5-8.5); NEUTROPHILS % 77.5 % (36.0-66.0); PLATELET COUNT, AUTOMATED 199 10^3/uL (150-450); RED BLOOD COUNT 4.55 10^6/uL (4.00-5.40); WHITE BLOOD COUNT 8.8 10^3/uL (4.0-10.0)
[2022-03-02] MEDS ORDERED: ACETAMINOPHEN TAB 650MG DOSE (2X325MG) PO ONE (16:45)
[2022-03-02 17:08] LABS: ALBUMIN 3.4 GM/DL (3.2-5.2); BILIRUBIN,DIRECT 0.6 MG/DL (0.0-0.2); BILIRUBIN,TOTAL 3.2 MG/DL (0.2-1.0); CALCIUM LEVEL 9.4 MG/DL (8.8-10.2); CREATININE FOR GFR 1.45 MG/DL (0.55-1.30); GLOMERULAR FILTRATION RATE 37.5 (>39); POTASSIUM SERUM 4.2 MEQ/L (3.5-5.1); THYROID STIMULATING HORMONE 0.673 uIU/ML (0.358-3.740)
[2022-03-02] MEDS ORDERED: cefTRIAXone SOD 1 GM in D5W MINI-BAG PLUS 50 ML IV ONE (18:10)
[2022-03-02] MEDS ORDERED: ACETAMINOPHEN TAB 650MG DOSE (2X325MG) PO PRN (19:15)
[2022-03-02] MEDS ORDERED: MOM 30ML SUSPENSION UDC PO PRN (19:15)
[2022-03-02] MEDS ORDERED: MAALOX 30 ML SUSP *UDC PO PRN (19:15)
[2022-03-02] MEDS ORDERED: DEXTROSE 50% 50 ML SYRINGE IV PRN (19:15)
[2022-03-02] MEDS ORDERED: GLUCAGON INJ 1MG VIAL SC PRN (19:15)
[2022-03-02] MEDS ORDERED: GLUCOSE 4GM CHEW TABLET PO PRN (19:15)
[2022-03-02 19:34] LABS: INR 1.05; PROTHROMBIN TIME 14.1 SECONDS (12.7-14.5)
[2022-03-02 19:35] LABS: PARTIAL THROMBOPLASTIN TIME 27.5 SECONDS (25.9-37.0)
[2022-03-02 20:00] VITALS: BP 157/81
[2022-03-02] MEDS: NS 1,000 ML IV SCH (20:00)
[2022-03-02] MEDS ORDERED: ATOR40TA75 PO (20:33)
[2022-03-02] MEDS ORDERED: VITA100093 PO (20:33)
[2022-03-02] MEDS ORDERED: ATEN25TA PO (20:33)
[2022-03-02] MEDS ORDERED: FLUO1TAB3 PO (20:35)
[2022-03-02] MEDS ORDERED: HOME MED LIST COMPLETE! XX SCH (20:35)
[2022-03-02] MEDS ORDERED: GABAPENTIN 300 MG CAP PO SCH (21:00)
[2022-03-02] MEDS: FAMOTIDINE 20 MG TAB PO SCH (22:17)
[2022-03-02] MEDS: DOCUSATE SODIUM 100MG CAPSULE PO SCH (22:17)
[2022-03-02] MEDS: INSULIN LISPRO (NovoLOG) PER UNIT SC SCH (22:25)
[2022-03-03] MEDS: NS 1,000 ML IV SCH (05:13)
[2022-03-03 05:20] VITALS: BP 165/80
[2022-03-03 06:00] VITALS: BP 182/100
[2022-03-03] MEDS ORDERED: KETOROLAC 30 MG/ML 1ML VIAL IV ONE ×2 (06:00)
[2022-03-03 06:09] LABS: HEMATOCRIT 38.9 % (36.0-47.0); HEMOGLOBIN 13.4 g/dl (12.0-15.5); MEAN CORPUSCULAR HEMOGLOBIN 29.1 pg (27.0-33.0); MEAN CORPUSCULAR HGB CONC 34.4 g/dl (32.0-36.5); MEAN CORPUSCULAR VOLUME 84.4 fl (80.0-96.0); PLATELET COUNT, AUTOMATED 190 10^3/uL (150-450); RED BLOOD COUNT 4.61 10^6/uL (4.00-5.40); WHITE BLOOD COUNT 8.4 10^3/uL (4.0-10.0)
[2022-03-03 06:42] LABS: BILIRUBIN,DIRECT 0.5 MG/DL (0.0-0.2); BILIRUBIN,TOTAL 1.9 MG/DL (0.2-1.0); CALCIUM LEVEL 8.9 MG/DL (8.8-10.2); CREATININE FOR GFR 1.24 MG/DL (0.55-1.30); GLOMERULAR FILTRATION RATE 44.9 (>39); MAGNESIUM LEVEL 1.7 MG/DL (1.8-2.4); POTASSIUM SERUM 4.3 MEQ/L (3.5-5.1); TOTAL PROTEIN 6.3 GM/DL (6.4-8.2)
[2022-03-03] MEDS: INSULIN LISPRO (NovoLOG) PER UNIT SC SCH ×5 (07:30→21:28)
[2022-03-03 08:25] VITALS: BP 134/76
[2022-03-03] MEDS ORDERED: MAG SULF 1GM/100ML (MAG RUN) 1 GM in IV 1 EA IV ONE (08:40)
[2022-03-03] MEDS ORDERED: atenoloL 25 MG TAB PO SCH (09:00)
[2022-03-03] MEDS ORDERED: lisinopriL 5 MG TAB PO SCH (09:00)
[2022-03-03] MEDS ORDERED: ATORVASTATIN 20 MG TAB PO SCH ×2 (09:00→21:00)
[2022-03-03] MEDS ORDERED: LEVEMIR (INSULIN DETEMIR) 1 UNITS/0.01ML SC SCH ×3 (09:00→21:00)
[2022-03-03 09:09] LABS: POTASSIUM RANDOM URINE 24.9 MEQ/L; TOTAL PROTEIN,RANDOM URINE 57.4 MG/DL (0.0-12.0)
[2022-03-03] MEDS: DOCUSATE SODIUM 100MG CAPSULE PO SCH ×2 (10:22→21:25)
[2022-03-03] MEDS: FLUoxetine 10 MG CAP PO SCH (10:23)
[2022-03-03] MEDS: ENOXAPARIN 30MG/0.3ML SYRINGE (J1650 PER 10MG) SC SCH (10:23)
[2022-03-03] MEDS: amLODIPine 5 MG TAB PO SCH ×2 (10:23→21:27)
[2022-03-03] MEDS: FAMOTIDINE 20 MG TAB PO SCH ×2 (10:24→21:25)
[2022-03-03] MEDS ORDERED: IBUPROFEN 600MG TAB PO PRN (12:00)
[2022-03-03] MEDS ORDERED: INSULIN LISPRO (NovoLOG) PER UNIT SC ONE (12:25)
[2022-03-03] MEDS ORDERED: LEVEMIR (INSULIN DETEMIR) 1 UNITS/0.01ML SC ONE (12:50)
[2022-03-03] MEDS ORDERED: ASPIRIN 81MG ENTERIC TABLET PO ONE (14:00)
[2022-03-03 14:41] VITALS: BP 137/68
[2022-03-03] MEDS ORDERED: cefTRIAXone SOD 1 GM in D5W MINI-BAG PLUS 50 ML IV SCH (18:00)
[2022-03-03 21:27] VITALS: BP 155/85
[2022-03-03 22:00] VITALS: BP 167/92
[2022-03-04 06:05] VITALS: BP 158/84
[2022-03-04 06:26] LABS: BILIRUBIN,TOTAL 1.3 MG/DL (0.2-1.0); CALCIUM LEVEL 9.1 MG/DL (8.8-10.2); CREATININE FOR GFR 1.17 MG/DL (0.55-1.30); POTASSIUM SERUM 3.7 MEQ/L (3.5-5.1)
[2022-03-04 06:27] LABS: ALBUMIN 2.7 GM/DL (3.2-5.2); CHOLESTEROL RISK RATIO 2.705 (<5); TOTAL PROTEIN 5.8 GM/DL (6.4-8.2)
[2022-03-04] MEDS ORDERED: ASPI-551 PO (06:28)
[2022-03-04] MEDS ORDERED: ATOR1TAB21 PO (06:28)
[2022-03-04] MEDS ORDERED: LEVO1TAB39 PO (06:30)
[2022-03-04] MEDS ORDERED: BACITAB PO (06:30)
[2022-03-04] MEDS: INSULIN LISPRO (NovoLOG) PER UNIT SC SCH ×2 (07:30→12:15)
[2022-03-04] MEDS: DOCUSATE SODIUM 100MG CAPSULE PO SCH (08:48)
[2022-03-04] MEDS: FLUoxetine 10 MG CAP PO SCH (08:48)
[2022-03-04] MEDS: ENOXAPARIN 30MG/0.3ML SYRINGE (J1650 PER 10MG) SC SCH (08:48)
[2022-03-04] MEDS: FAMOTIDINE 20 MG TAB PO SCH (08:48)
[2022-03-04] MEDS: amLODIPine 5 MG TAB PO SCH (08:49)
[2022-03-04] MEDS ORDERED: ASPIRIN 81MG ENTERIC TABLET PO SCH (09:00)
[2022-03-04] MEDS ORDERED: LINEZOLID 600MG TABLET (ZYVOX) PO ONE (12:00)
[2022-03-04] MEDS ORDERED: cefTRIAXone SOD 1 GM in D5W MINI-BAG PLUS 50 ML IV ONE (13:40)
[2022-03-05] MEDS ORDERED: LevoFLOXacin 750 MG TABLET PO SCH (06:00)
== END 2022-03-04 15:15 | disposition home health service (06) | DRG 871 ==
LOC: M ED 14:29 → M ED INP 19:11 → ENRESERV 19:59 → M MSPAV 21:56 → OBSVTOIN 03-03 13:29 → UNDODISIN 03-04 15:15
PROVIDERS: ADMIT Family Medicine; ATTEND General Practice
PROC: B246ZZZ Ultrasonography of Right and Left Heart (ICD-10-PCS; principal; 2022-03-04)
DX: A41.9 Sepsis, unspecified organism (principal); G93.41 Metabolic encephalopathy; I63.81 Other cerebral infarction due to occlusion or stenosis of small artery; N39.0 Urinary tract infection, site not specified; N17.9 Acute kidney failure, unspecified; E87.1 Hypo-osmolality and hyponatremia; I10 Essential (primary) hypertension; E78.5 Hyperlipidemia, unspecified; E11.9 Type 2 diabetes mellitus without complications; G47.33 Obstructive sleep apnea (adult) (pediatric); K21.9 Gastro-esophageal reflux disease without esophagitis; R30.0 Dysuria; Z96.652 Presence of left artificial knee joint; Z20.822 Contact with and (suspected) exposure to COVID-19; F32.A Depression, unspecified; F41.9 Anxiety disorder, unspecified; Z79.4 Long term (current) use of insulin; Z79.899 Other long term (current) drug therapy; Z88.5 Allergy status to narcotic agent; B95.2 Enterococcus as the cause of diseases classified elsewhere; E86.0 Dehydration

== ENCOUNTER → 2022-04-06 | Outpatient (CLI) | payer MEDICARE, OTHER ==
[~2022-04-06] MED LIST changes: +ASPI-551 PO; +ATEN25TA PO; +ATOR1TAB21 PO; +ATOR40TA75 PO; +BACITAB PO; +FAMO20TA5 PO; +FLUO1TAB3 PO; +HUMA100I5 SC; +LEVO500T4 PO; +LISI5TAB11 PO; +VITA100093 PO
== END ==
LOC: M LABSMTC 11:20
PROVIDERS: ATTEND Anesthesiology
DX: Z01.812 Encounter for preprocedural laboratory examination (principal); Z20.822 Contact with and (suspected) exposure to COVID-19

== ENCOUNTER 2022-04-11 10:45 | Day surgery (SDC) | payer MEDICARE, OTHER ==
[~2022-04-11] VITALS: Ht 170.2 cm; Wt 74.8 kg
[~2022-04-11 10:45] MED LIST changes: +LEVO1TAB39 PO; -LEVO500T4 PO; +LIDOCAINE 2% 100MG/5ML SDV (FOR ANES.) As Ordered ONE; +MIDAZOLAM INJ 2MG/2ML VIAL (J2250 PER 1MG) As Ordered ONE; +ceFAZolin SOD 2 GM in IV 1 EA IV ONE; +propofoL 200 MG/20 ML VIAL As Ordered ONE
[2022-04-11] MEDS ORDERED: LR 1,000 ML IV SCH (11:05)
[2022-04-11] MEDS ORDERED: LIDOCAINE 1% MDV 20ML VIAL As Ordered ONE (12:25)
[2022-04-11] MEDS ORDERED: BACITRACIN OINTMENT 30GM TUBE As Ordered ONE (13:03)
[2022-04-11 13:35] VITALS: BP 134/60
== END 2022-04-11 13:50 | disposition home or self-care (01) ==
LOC: M SDC 10:45
PROVIDERS: ATTEND Internal Medicine Cardiovascular Disease
DX: I63.9 Cerebral infarction, unspecified (principal); I10 Essential (primary) hypertension; R94.31 Abnormal electrocardiogram [ECG] [EKG]; R00.1 Bradycardia, unspecified; E78.5 Hyperlipidemia, unspecified; E11.9 Type 2 diabetes mellitus without complications; G47.33 Obstructive sleep apnea (adult) (pediatric); K21.9 Gastro-esophageal reflux disease without esophagitis; F32.A Depression, unspecified; E83.119 Hemochromatosis, unspecified; M48.00 Spinal stenosis, site unspecified; K76.9 Liver disease, unspecified; Z79.899 Other long term (current) drug therapy; Z79.82 Long term (current) use of aspirin; Z79.4 Long term (current) use of insulin; Z88.5 Allergy status to narcotic agent
CPT/HCPCS: 33285; C1764; J0690; J2250

== ENCOUNTER → 2022-04-16 | Outpatient (REF) | payer MEDICARE, OTHER ==
[~2022-04-16] MED LIST changes: -LIDOCAINE 2% 100MG/5ML SDV (FOR ANES.) As Ordered ONE; -MIDAZOLAM INJ 2MG/2ML VIAL (J2250 PER 1MG) As Ordered ONE; -ceFAZolin SOD 2 GM in IV 1 EA IV ONE; -propofoL 200 MG/20 ML VIAL As Ordered ONE
[2022-04-16 17:05] LABS: APPEARANCE, URINE CLOUDY (CLEAR); BACTERIA, URINE AUTO NEGATIVE (NEGATIVE); BILIRUBIN, URINE AUTO NEGATIVE (NEGATIVE); BLOOD, URINE BLOOD 2+ (NEGATIVE); COLOR, URINE YELLOW (YELLOW); GLUCOSE, URINE (UA) AUTO 3+ mg/dL (NEGATIVE); KETONE, URINE AUTO NEGATIVE (NEGATIVE); LEUKOCYTE ESTERASE, URINE AUTO 3+ (NEGATIVE); NITRITE, URINE AUTO NEGATIVE (NEGATIVE); PROTEIN, URINE AUTO 1+ mg/dL (NEGATIVE); RBC, URINE AUTO 22 /HPF (0-3); SPECIFIC GRAVITY URINE AUTO 1.027 (1.002-1.035); SQUAMOUS EPITHELIAL CELL UR AU 7 /HPF (0-6); UROBILINOGEN, URINE AUTO 0.2 mg/dL (0.0-2.0); WBC, URINE AUTO TNTC /HPF (0-3)
== END ==
LOC: M LAB REF 16:50
PROVIDERS: ATTEND Physician Assistant Medical
DX: N39.0 Urinary tract infection, site not specified (principal)

== ENCOUNTER → 2022-06-06 | Outpatient (REF) | payer MEDICARE, OTHER ==
[2022-06-06 20:05] LABS: APPEARANCE, URINE MANUAL CLOUDY (CLEAR); BILIRUBIN, URINE MANUAL NEGATIVE (NEGATIVE); BLOOD URINE MANUAL POSITIVE (NEGATIVE); COLOR, URINE MANUAL YELLOW (YELLOW); GLUCOSE, URINE (UA) MANUAL NEGATIVE (NEGATIVE); KETONE, URINE MANUAL NEGATIVE (NEGATIVE); LEUKOCYTE ESTERASE, URINE MAN POSITIVE (NEGATIVE); NITRITE, URINE MANUAL POSITIVE (NEGATIVE); PH,URINE MAN 5.5 UNITS (5.0 - 7.0); PROTEIN, URINE MANUAL 2+ mg/dL (NEGATIVE); UROBILINOGEN, URINE MANUAL NORMAL (NORMAL)
[2022-06-06 20:27] LABS: BACTERIA, URINE LARGE AMOUNT; HYALINE CAST, URINE 0-1 /lpf (0-1); SQUAMOUS EPITHELIAL CELL URINE MOD AMOUNT /hpf (SMALL AMT); WBC, URINE TNTC /hpf (0-3)
== END ==
LOC: M LAB REF 16:21
PROVIDERS: ATTEND Physician Assistant Medical
DX: N39.0 Urinary tract infection, site not specified (principal)

== ENCOUNTER → 2022-07-13 | Outpatient (REF) | payer MEDICARE, OTHER | LOC: M LAB REF 16:10 | PROVIDERS: ATTEND Nurse Practitioner Adult Health | DX: N18.32 Chronic kidney disease, stage 3b (principal) ==

== ENCOUNTER → 2022-08-18 | Outpatient (CLI) | payer MEDICARE, OTHER ==
[2022-08-18 14:31] LABS: THYROID STIMULATING HORMONE 1.285 uIU/ML (0.55-4.78)
[2022-08-18 14:34] LABS: FOLATE 14.4 NG/ML (>5.4)
== END ==
LOC: M LAB 12:34
PROVIDERS: ATTEND Psychiatry & Neurology Neurology
DX: E03.9 Hypothyroidism, unspecified (principal); E53.8 Deficiency of other specified B group vitamins; E51.9 Thiamine deficiency, unspecified; E53.1 Pyridoxine deficiency

== ENCOUNTER → 2023-02-11 | Outpatient (REF) | payer MEDICARE, OTHER ==
[~2023-02-11] MED LIST changes: +INSU100I6 SC; -LEVE1INJ5 SC
[2023-02-11 17:43] LABS: APPEARANCE, URINE TURBID (CLEAR); BACTERIA, URINE AUTO NEGATIVE (NEGATIVE); BILIRUBIN, URINE AUTO NEGATIVE (NEGATIVE); BLOOD, URINE BLOOD 3+ (NEGATIVE); COLOR, URINE AMBER (YELLOW); GLUCOSE, URINE (UA) AUTO 3+ mg/dL (NEGATIVE); KETONE, URINE AUTO NEGATIVE (NEGATIVE); LEUKOCYTE ESTERASE, URINE AUTO 3+ (NEGATIVE); NITRITE, URINE AUTO POSITIVE (NEGATIVE); PROTEIN, URINE AUTO 3+ mg/dL (NEGATIVE); RBC, URINE AUTO TNTC /HPF (0-3); SPECIFIC GRAVITY URINE AUTO 1.021 (1.002-1.035); SQUAMOUS EPITHELIAL CELL UR AU 0 /HPF (0-6); UROBILINOGEN, URINE AUTO 0.2 mg/dL (0.0-2.0); WBC, URINE AUTO TNTC /HPF (0-3)
== END ==
LOC: M LAB REF 17:05
PROVIDERS: ATTEND Physician Assistant Medical
DX: N39.0 Urinary tract infection, site not specified (principal)

== ENCOUNTER → 2024-02-27 | Outpatient (REF) | payer MEDICARE, OTHER ==
[~2024-02-27] MED LIST changes: +FLUO-365 PO; -FLUO20CA22 PO
[2024-02-28 13:47] LABS: FERRITIN 92.2 NG/ML (7.3-270.7)
[2024-02-28 13:48] LABS: PERCENT SATURATION 23.1 % (13.2-45.0)
== END ==
LOC: M LAB REF 12:19
PROVIDERS: ATTEND Nurse Practitioner Family
DX: E83.110 Hereditary hemochromatosis (principal)

== ENCOUNTER → 2024-08-03 | Outpatient (REF) | payer MEDICARE, OTHER ==
[~2024-08-03] MED LIST changes: +ATOR-398 PO; +GABA-1172 PO; -GABA-282 PO; -LIPI80TA PO
[2024-08-03 17:56] LABS: APPEARANCE, URINE TURBID (CLEAR); BACTERIA, URINE AUTO 3+ (NEGATIVE); BILIRUBIN, URINE AUTO NEGATIVE (NEGATIVE); BLOOD, URINE BLOOD 2+ (NEGATIVE); COLOR, URINE RED (YELLOW); GLUCOSE, URINE (UA) AUTO NEGATIVE (NEGATIVE); KETONE, URINE AUTO TRACE mg/dL (NEGATIVE); LEUKOCYTE ESTERASE, URINE AUTO 1+ (NEGATIVE); NITRITE, URINE AUTO NEGATIVE (NEGATIVE); PROTEIN, URINE AUTO 2+ mg/dL (NEGATIVE); RBC, URINE AUTO 106 /HPF (0-3); SPECIFIC GRAVITY URINE AUTO 1.024 (1.002-1.035); SQUAMOUS EPITHELIAL CELL UR AU 0 /HPF (0-6); UROBILINOGEN, URINE AUTO 0.2 mg/dL (0.0-2.0); WBC, URINE AUTO TNTC /HPF (0-3)
== END ==
LOC: M LAB REF 17:31
PROVIDERS: ATTEND Physician Assistant Medical
DX: N39.0 Urinary tract infection, site not specified (principal)

== ENCOUNTER → 2024-10-04 | Outpatient (CLI) | payer MEDICARE, OTHER ==
[2024-10-04 11:34] LABS: CHOLESTEROL RISK RATIO 2.43 (<5); HDL CHOLESTEROL 49.3 MG/DL (>40); LDL CHOLESTEROL 48.3 MG/DL (<100); NON-HDL-C 70.7 MG/DL
== END ==
LOC: M LAB 10:19
PROVIDERS: ATTEND Physician Assistant
DX: E78.2 Mixed hyperlipidemia (principal)

== ENCOUNTER → 2025-08-13 | Outpatient (REF) | payer MEDICARE, OTHER ==
[~2025-08-13] MED LIST changes: +BUPR150T15 PO; -BUPR1TAB53 PO
== END ==
LOC: M LAB REF 17:26
PROVIDERS: ATTEND Nurse Practitioner Family
DX: N18.32 Chronic kidney disease, stage 3b (principal); N39.0 Urinary tract infection, site not specified